=== PATIENT | male | born 1960 | race Caucasian/White ===

== ENCOUNTER → 2016-04-05 | Outpatient (CLI) | payer OTHER ==
[~2016-04-05] MED LIST: GOODY S HEADACHE PO; MVI PO; NORCO 325 MG-7.1 TAB PO; NORVASC 10MG10 MG PO; OMEGA 3 PO; PROAIR HFA0.09 MG/AC IH; ZOCOR40 MG PO
== END ==
LOC: MHCPAIN 07:42
DX: G89.29 Other chronic pain (principal); M25.572 Pain in left ankle and joints of left foot; G57.92 Unspecified mononeuropathy of left lower limb
CPT/HCPCS: G0463

== ENCOUNTER → 2016-04-13 | Outpatient (CLI) | payer OTHER | LOC: MHCPAIN 10:36 | DX: M19.172 Post-traumatic osteoarthritis, left ankle and foot (principal) | CPT/HCPCS: J1040; Q9967 ==

== ENCOUNTER → 2016-06-14 | Outpatient (CLI) | payer OTHER | LOC: MHCPAIN 08:21 | DX: G89.29 Other chronic pain (principal); G57.92 Unspecified mononeuropathy of left lower limb | CPT/HCPCS: G0463 ==

== ENCOUNTER → 2016-08-23 | Outpatient (CLI) | payer OTHER | LOC: MHCPAIN 08:25 | DX: G89.29 Other chronic pain (principal); M25.572 Pain in left ankle and joints of left foot; M79.2 Neuralgia and neuritis, unspecified; F17.210 Nicotine dependence, cigarettes, uncomplicated | CPT/HCPCS: G0463 ==

== ENCOUNTER → 2016-08-24 | Outpatient (CLI) | payer OTHER | LOC: MHCPAIN 08:21 | DX: M19.172 Post-traumatic osteoarthritis, left ankle and foot (principal) | CPT/HCPCS: J1040; Q9967 ==

== ENCOUNTER 2018-02-06 08:39 | Emergency (ER) | payer OTHER ==
[~2018-02-06] VITALS: Ht 180.3 cm; Wt 72.3 kg
[2018-02-06 09:11] LABS: COLLECTION METHOD CLEAN CATCH
[2018-02-06 09:14] LABS: BASO % 0.3 % (0.0-2.0); EOS % 0.5 % (0-4.0); GRAN # 3.9 (1.4-6.5); GRAN % 68.5 % (42.2-75.2); HEMATOCRIT 44.1 % (42.0-52.0); HEMOGLOBIN 16.1 g/dl (13.5-18.0); LYMPH # 1.1 (1.2-3.4); LYMPH % 19.3 % (20.0-51.0); MEAN CELL VOLUME 97 fl (80.0-100.0); MEAN CORPUSCULAR HEMOGLOBIN 35 pg (27.0-31.0); MEAN CORPUSCULAR HGB CONC 37 g/dl (33.0-37.0); MEAN PLATELET VOLUME 9.1 fl (7.4-10.4); MONO # 0.6 (0.1-0.6); MONO % 11.1 % (1.7-9.3); PLATELET COUNT 256 K/mm3 (130-400); RED BLOOD COUNT 4.56 M/mm3 (4.20-5.60); REDCELL DISTRIBUTION WIDTH-CV 13.1 % (11.5-14.5)
[2018-02-06 09:20] LABS: MUCOUS Present /lpf; PH 5 (5-8); SQUAMOUS EPITHELIAL None Seen /hpf; URINE APPEARANCE Hazy; URINE BACTERIA None Seen /hpf; URINE BILIRUBIN Negative (NEGATIVE); URINE BLOOD Negative (NEGATIVE); URINE COLOR Amber; URINE GLUCOSE 1+ (NEGATIVE); URINE KETONE Trace (NEGATIVE); URINE LEUKOCYTE ESTERASE Negative (NEGATIVE); URINE NITRATE Negative (NEGATIVE); URINE PROTEIN(semi-quant) 2+ (NEGATIVE); URINE RBC 0-2 /hpf; URINE UROBILINOGEN >=4.0 mg/dL (NEGATIVE)
[2018-02-06 09:35] LABS: ALANINE AMINOTRANSFERASE 53 U/L (21-72); ALBUMIN 4.4 gm/dL (3.5-5.0); ALKALINE PHOSPHATASE 70 U/L (50-136); ANION GAP 7 mmol/L (7-16); AST,SGOT 46 U/L (15-37); BILIRUBIN,TOTAL 2.7 mg/dL (0.0-1.0); BLOOD UREA NITROGEN 12 mg/dL (9-20); CALCIUM 9.6 mg/dL (8.4-10.2); CARBON DIOXIDE 24 mmol/L (22-30); CHLORIDE 101 mmol/L (98-107); CREATININE, serum 0.86 mg/dL (0.66-1.25); GLUCOSE 145 mg/dL (74-106); LIPASE 174 U/L (23-300); POTASSIUM 4.1 mmol/L (3.4-5.0); SODIUM 132 mmol/L (137-145); TOTAL PROTEIN 7.3 gm/dL (6.4-8.2)
[2018-02-06 09:36] LABS: C-REACTIVE PROTEIN < 0.5 mg/dL (0.0-0.9)
[2018-02-06] MEDS ORDERED: PHENERGAN 25 TA25 MG PO (10:11)
[2018-02-06 10:24] VITALS: BP 140/94; PULSE 85; TEMP 96.4
== END 2018-02-06 10:24 | disposition home or self-care (01) ==
LOC: COL.ER 08:39
PROVIDERS: Nurse Practitioner
DX: R10.12 Left upper quadrant pain (principal); G89.29 Other chronic pain; J43.9 Emphysema, unspecified; F17.210 Nicotine dependence, cigarettes, uncomplicated; Z79.899 Other long term (current) drug therapy; Z85.46 Personal history of malignant neoplasm of prostate
CPT/HCPCS: J7030